=== PATIENT | female | born 1940 | race Caucasian/White ===

== ENCOUNTER 2020-09-08 23:43 | Observation (INO) | payer OTHER ==
[2020-09-09] MEDS ORDERED: LIDOCAINE 5% TOPICAL PATCH TP ONE (00:44)
[2020-09-09] MEDS ORDERED: ACETAMINOPHEN 500 MG TABLET (FP) PO ONE (00:44)
[2020-09-09] MEDS ORDERED: LIDOCAINE 5% TOPICAL PATCH ONE (00:52)
[2020-09-09] MEDS ORDERED: ACETAMINOPHEN 325 MG TABLET (FP) ONE (00:52)
[2020-09-09 03:18] LABS: HEMATOCRIT 36.2 % (32.4-45.2); HEMOGLOBIN 12.1 GM/dL (10.7-15.3); MCH 31.5 pg (25.7-33.7); MCHC 33.5 g/dl (32.0-36.0); MEAN PLT VOLUME 8.4 fl (7.5-11.1); PLATELET COUNT 244 K/MM3 (134-434); RBC 3.85 M/mm3 (3.60-5.2); RDW 13.1 % (11.6-15.6); WHITE BLOOD COUNT 12.1 K/mm3 (4.0-10.0)
[2020-09-09 03:36] LABS: CALCIUM 8.7 mg/dL (8.5-10.1)
[2020-09-09 03:37] LABS: ALBUMIN 3.3 g/dl (3.4-5.0); BLOOD UREA NITROGEN 14.8 mg/dL (7-18)
[2020-09-09 03:41] LABS: CREATININE 0.5 mg/dL (0.55-1.3)
[2020-09-09 03:42] LABS: BILIRUBIN,TOTAL 0.2 mg/dL (0.2-1); TOT PROT 6.4 g/dl (6.4-8.2)
[2020-09-09] MEDS ORDERED: ACETAMINOPHEN 325 MG TABLET (FP) PO PRN (04:37)
[2020-09-09] MEDS ORDERED: oxyCODONE HCL 5 MG TABLET PO PRN (04:39)
[2020-09-09] MEDS ORDERED: KETOROLAC TROMETHAMINE 15 MG/ML VIAL IVPUSH ONE (04:43)
[2020-09-09] MEDS: ENOXAPARIN NA (PORCINE) 40 MG/0.4 ML DISP.SYRIN SQ SCH ×2 (11:27→12:32)
[2020-09-09] MEDS ORDERED: LIDOCAINE PATCH REMOVAL MC ONE (12:00)
[2020-09-09 13:07] LABS: BASO % 0.4 % (0-2.0); EOS % 1.2 % (0-4.5); HEMATOCRIT 37.2 % (32.4-45.2); HEMOGLOBIN 12.8 GM/dL (10.7-15.3); LYMPH % 17.9 % (8-40); MCH 31.9 pg (25.7-33.7); MCHC 34.3 g/dl (32.0-36.0); MEAN PLT VOLUME 7.9 fl (7.5-11.1); MONO % 6.5 % (3.8-10.2); PLATELET COUNT 253 K/MM3 (134-434); RBC 4.01 M/mm3 (3.60-5.2); RDW 12.9 % (11.6-15.6); WHITE BLOOD COUNT 8.9 K/mm3 (4.0-10.0)
[2020-09-09 13:26] LABS: CALCIUM 8.8 mg/dL (8.5-10.1)
[2020-09-09 13:27] LABS: ALBUMIN 3.5 g/dl (3.4-5.0); BLOOD UREA NITROGEN 11.2 mg/dL (7-18)
[2020-09-09 13:30] LABS: CREATININE 0.4 mg/dL (0.55-1.3)
[2020-09-09 13:32] LABS: BILIRUBIN,TOTAL 0.6 mg/dL (0.2-1); TOT PROT 6.5 g/dl (6.4-8.2)
[2020-09-09 14:35] LABS: PH,URINE 7.5 (5.0-8.0); URINE APPEARANCE CLEAR; URINE BILIRUBIN NEGATIVE (NEGATIVE); URINE COLOR YELLOW; URINE GLUCOSE (UA) NEGATIVE (NEGATIVE); URINE KETONE NEGATIVE (NEGATIVE); URINE LEUK ESTERASE NEGATIVE (NEGATIVE); URINE NITRITE NEGATIVE (NEGATIVE); URINE PROTEIN NEGATIVE (NEGATIVE); URINE UROBILINOGEN 0.2 mg/dL (0.2-1.0)
[2020-09-09 16:13] VITALS: BMI 20.9
[2020-09-09] MEDS ORDERED: PT OWN MED DRAWER 7, Y5N ONE (20:29)
[2020-09-10] MEDS: ENOXAPARIN NA (PORCINE) 40 MG/0.4 ML DISP.SYRIN SQ SCH (09:58)
[2020-09-11] MEDS: ENOXAPARIN NA (PORCINE) 40 MG/0.4 ML DISP.SYRIN SQ SCH (11:13)
[2020-09-11] MEDS ORDERED: KETOROLAC TROMETHAMINE 15 MG/ML VIAL IVPUSH ONE (12:55)
[2020-09-11 15:31] VITALS: BP 141/63; PULSE 90; TEMP 98
== END 2020-09-11 14:00 ==
LOC: JER 23:43 → OBSVTOIN 09-09 02:51 → INTOOBSV 09-09 02:51 → JERBED 09-09 02:51 → J5S 09-09 10:45
PROVIDERS: ADMIT Internal Medicine; ATTEND Family Medicine
PROC: 3E023GC Introduction of Other Therapeutic Substance into Muscle, Percutaneous Approach (ICD-10-PCS; principal; 2020-09-09)
PROC: 3E0333Z Introduction of Anti-inflammatory into Peripheral Vein, Percutaneous Approach (ICD-10-PCS; 2020-09-09)
DX: S09.90XA Unspecified injury of head, initial encounter (principal); Z97.8 Presence of other specified devices; Z93.3 Colostomy status; K57.92 Diverticulitis of intestine, part unspecified, without perforation or abscess without bleeding; W06.XXXA Fall from bed, initial encounter; Y93.89 Activity, other specified; Y92.092 Bedroom in other non-institutional residence as the place of occurrence of the external cause; M25.562 Pain in left knee; M25.531 Pain in right wrist; R53.1 Weakness; M54.9 Dorsalgia, unspecified; M54.5 Low back pain; S60.221A Contusion of right hand, initial encounter; S80.02XA Contusion of left knee, initial encounter; Z29.9 Encounter for prophylactic measures, unspecified
CPT/HCPCS: 36415; 70450-TC; 72125-TC; 72131-TC; 72170-TC-FY; 73110-TC-RT-FY; 73130-TC-RT-FY; 73560-TC-LT-FY; 80053; 81003; 84100; 84443; 85025; 85027; 85651; 86140; 87086; 93005; 93010; 96372; 96374; 96376; 97116-GP; 97162-GP; 99285-25; C9803; G0378; U0003; U0005

== ENCOUNTER 2020-10-02 04:32 | Day surgery (SDC) | payer OTHER ==
[2020-10-01 13:24] VITALS: BMI 21.2
[~2020-10-02 04:32] MED LIST: CYCLOPENTOLATE HCL 1% OPHTH SOLN 2 ML BOTTLE OP SCH; KETOROLAC TROMETHAMINE 0.5% EYE DROP 1 DROP DROPS OP SCH; OFLOXACIN 0.3% OPHTHALMIC SOLUTION 5 ML BOTTLE OP SCH; PHENYLEPHRINE 2.5% OPHTH SOLN 15 ML BOTTLE OP SCH; TROPICAMIDE 1% OPHTH SOLN 15 ML BOTTLE OP SCH
[2020-10-02] MEDS ORDERED: CYCLOPENTOLATE HCL 1% OPHTH SOLN 2 ML BOTTLE ONE (06:48)
[2020-10-02] MEDS ORDERED: KETOROLAC TROMETHAMINE 0.5% EYE DROP 1 DROP DROPS ONE (06:48)
[2020-10-02] MEDS ORDERED: TROPICAMIDE 1% OPHTH SOLN 15 ML BOTTLE ONE (06:48)
[2020-10-02] MEDS ORDERED: OFLOXACIN 0.3% OPHTHALMIC SOLUTION 5 ML BOTTLE ONE (06:49)
[2020-10-02] MEDS ORDERED: EPHEDRINE SULFATE/0.9% NACL/PF 50 MG/10 ML SYRINGE NR ONE (06:52)
[2020-10-02] MEDS ORDERED: LIDOCAINE HCL/PF 2% SDV 5ML VIAL ONE (06:54)
[2020-10-02] MEDS ORDERED: PROPOFOL 20 ML ONE (06:55)
[2020-10-02] MEDS ORDERED: EPINEPHrine/PF 1 MG/1 ML (1:1,000) AMPULE ONE (07:16)
[2020-10-02] MEDS ORDERED: VANCOMYCIN 500 MG VIAL (RESTRICTED TO ID ONLY) ONE (07:16)
[2020-10-02] MEDS ORDERED: LIDOCAINE HCL/PF 1% SDV 5ML VIAL ONE (07:16)
[2020-10-02] MEDS ORDERED: TETRACAINE 0.5% OPHTH SOLN 2 ML BOTTLE ONE (07:17)
[2020-10-02] MEDS ORDERED: POVIDONE-IODINE 5% OPHTHALMIC PREP 30 ML SOLUTION ONE (07:17)
[2020-10-02] MEDS ORDERED: BSS (NA/CA/MG/K) BALANCED SALT SOLUTION OPHTH SOLN 15 ML BOTTLE ONE (07:17)
[2020-10-02] MEDS ORDERED: KETOROLAC TROMETHAMINE 0.5% EYE DROP 1 DROP DROPS OS ONE ×3 (07:20→07:35)
[2020-10-02] MEDS ORDERED: TROPICAMIDE 1% OPHTH SOLN 15 ML BOTTLE OS ONE ×3 (07:20→07:36)
[2020-10-02] MEDS ORDERED: TETRACAINE 0.5% OPHTH SOLN 2 ML BOTTLE OS ONE ×2 (07:20→08:05)
[2020-10-02] MEDS ORDERED: PHENYLEPHRINE 2.5% OPHTH SOLN 15 ML BOTTLE OS ONE ×3 (07:20→07:35)
[2020-10-02] MEDS ORDERED: OFLOXACIN 0.3% OPHTHALMIC SOLUTION 5 ML BOTTLE OS ONE ×3 (07:20→07:35)
[2020-10-02] MEDS ORDERED: CYCLOPENTOLATE HCL 1% OPHTH SOLN 2 ML BOTTLE OS ONE ×3 (07:20→07:35)
[2020-10-02] MEDS ORDERED: POVIDONE-IODINE 5% OPHTHALMIC PREP 30 ML SOLUTION OS ONE ×2 (07:21→08:06)
[2020-10-02] MEDS ORDERED: LIDOCAINE HCL 1% PRESERVATIVE FREE - 30ML VIAL IO ONE ×2 (07:21→08:12)
[2020-10-02] MEDS ORDERED: BSS (NA/CA/MG/K) BALANCED SALT SOLUTION OPHTH SOLN 15 ML BOTTLE IO ONE ×2 (07:22→08:15)
[2020-10-02] MEDS ORDERED: CHONDROITIN SU A/HYALUR SOD 1 KIT IO ONE ×2 (07:22→08:20)
[2020-10-02] MEDS ORDERED: EPINEPHrine/PF 1 MG/1 ML (1:1,000) AMPULE SQ ONE ×2 (07:23→08:23)
[2020-10-02] MEDS ORDERED: MIDAZOLAM HCL 2 MG/2 ML SINGLE DOSE VIAL ONE (08:05)
[2020-10-02 11:21] VITALS: BP 146/62; PULSE 76; TEMP 98
== END 2020-10-02 10:30 | disposition home or self-care (01) ==
LOC: JASU-SURG 04:32
PROVIDERS: ATTEND Ophthalmology
PROC: 08RK3JZ Replacement of Left Lens with Synthetic Substitute, Percutaneous Approach (ICD-10-PCS; principal; 2020-10-02 08:13)
DX: H26.9 Unspecified cataract (principal)

== ENCOUNTER 2020-10-16 05:12 | Day surgery (SDC) | payer OTHER ==
[2020-10-15 13:59] VITALS: BMI 21.2
[2020-10-16] MEDS ORDERED: CYCLOPENTOLATE HCL 1% OPHTH SOLN 2 ML BOTTLE ONE (07:05)
[2020-10-16] MEDS ORDERED: KETOROLAC TROMETHAMINE 0.5% EYE DROP 1 DROP DROPS ONE (07:05)
[2020-10-16] MEDS ORDERED: TROPICAMIDE 1% OPHTH SOLN 15 ML BOTTLE ONE (07:05)
[2020-10-16] MEDS ORDERED: OFLOXACIN 0.3% OPHTHALMIC SOLUTION 5 ML BOTTLE ONE (07:05)
[2020-10-16] MEDS ORDERED: TETRACAINE 0.5% OPHTH SOLN 2 ML BOTTLE ONE (07:12)
[2020-10-16] MEDS ORDERED: LIDOCAINE HCL/PF 1% SDV 5ML VIAL ONE (07:12)
[2020-10-16] MEDS ORDERED: EPINEPHrine/PF 1 MG/1 ML (1:1,000) AMPULE ONE (07:12)
[2020-10-16] MEDS ORDERED: BSS (NA/CA/MG/K) BALANCED SALT SOLUTION OPHTH SOLN 15 ML BOTTLE ONE (07:12)
[2020-10-16] MEDS ORDERED: VANCOMYCIN 500 MG VIAL (RESTRICTED TO ID ONLY) ONE (07:12)
[2020-10-16] MEDS ORDERED: WATER FOR INJ,STERILE 10 ML ONE (07:13)
[2020-10-16] MEDS ORDERED: POVIDONE-IODINE 5% OPHTHALMIC PREP 30 ML SOLUTION ONE (07:13)
[2020-10-16] MEDS ORDERED: TROPICAMIDE 1% OPHTH SOLN 15 ML BOTTLE OD ONE ×3 (07:20→07:48)
[2020-10-16] MEDS ORDERED: KETOROLAC TROMETHAMINE 0.5% EYE DROP 1 DROP DROPS OD ONE ×3 (07:20→07:47)
[2020-10-16] MEDS ORDERED: PHENYLEPHRINE 2.5% OPHTH SOLN 15 ML BOTTLE OD ONE ×3 (07:20→07:48)
[2020-10-16] MEDS ORDERED: OFLOXACIN 0.3% OPHTHALMIC SOLUTION 5 ML BOTTLE OD ONE ×3 (07:20→07:48)
[2020-10-16] MEDS ORDERED: CYCLOPENTOLATE HCL 1% OPHTH SOLN 2 ML BOTTLE OD ONE ×3 (07:20→07:46)
[2020-10-16 07:26] VITALS: TEMP 97.8
[2020-10-16] MEDS ORDERED: TETRACAINE 0.5% OPHTH SOLN 2 ML BOTTLE TP ONE ×2 (07:52→09:15)
[2020-10-16] MEDS ORDERED: POVIDONE-IODINE 5% OPHTHALMIC PREP 30 ML SOLUTION OD ONE ×2 (07:53→09:16)
[2020-10-16] MEDS ORDERED: LIDOCAINE HCL 1% PRESERVATIVE FREE - 30ML VIAL IO ONE ×2 (07:54→09:25)
[2020-10-16] MEDS ORDERED: CHONDROITIN SU A/HYALUR SOD 1 KIT IO ONE ×2 (07:54→09:25)
[2020-10-16] MEDS ORDERED: BSS (NA/CA/MG/K) BALANCED SALT SOLUTION OPHTH SOLN 15 ML BOTTLE OD ONE ×2 (07:54→09:25)
[2020-10-16] MEDS ORDERED: EPINEPHrine/PF 1 MG/1 ML (1:1,000) AMPULE SQ ONE ×2 (07:55→09:31)
[2020-10-16] MEDS ORDERED: MIDAZOLAM HCL 2 MG/2 ML SINGLE DOSE VIAL ONE (08:41)
[2020-10-16] MEDS ORDERED: LIDOCAINE HCL/PF 2% SDV 5ML VIAL SQ ONE (09:22)
[2020-10-16] MEDS ORDERED: LIDOCAINE HCL/PF 2% SDV 5ML VIAL ONE (09:54)
[2020-10-16 11:28] VITALS: BP 113/52; PULSE 68
== END 2020-10-16 10:50 | disposition home or self-care (01) ==
LOC: JASU-SURG 05:12
PROVIDERS: ATTEND Ophthalmology
PROC: 08RJ3JZ Replacement of Right Lens with Synthetic Substitute, Percutaneous Approach (ICD-10-PCS; principal; 2020-10-16 09:00)
DX: H26.9 Unspecified cataract (principal)